=== PATIENT | female | born 1975 | race Caucasian/White ===

== ENCOUNTER → 2018-06-10 | Outpatient (CLI) | payer BC ==
--- NOTE | 2018-06-11 13:44 | CT ---
EXAMINATION TYPE: CT abdomen pelvis w con DATE OF EXAM: 06/10/2018 COMPARISON: Prior CT 04/20/2016 HISTORY: LLQ pain with history of mass removal CT DLP: 2665.4 mGycm Automated exposure control for dose reduction was used. TECHNIQUE: Helical acquisition of images from the lung bases through the pelvis have been completed. CONTRAST: Performed with Oral Contrast and with IV Contrast, patient injected with 100 mL of Isovue 300. FINDINGS: Patient is post lap band. Thickening of the distal esophagus could be due to small hiatal h ernia or esophagitis, postop change, port is present in the subcutaneous fat overlying the left rectu s muscle. Small umbilical hernia contains fat. LUNG BASES: No significant abnormality is appreciated. AORTA: No significant abnormality is appreciated. LIVER/GB: No significant abnormality is appreciated. PANCREAS: No significant abnormality is seen. SPLEEN: No significant abnormality is seen. ADRENALS: No significant abnormality is seen. KIDNEYS: No significant abnormality is seen. REPRODUCTIVE ORGANS: Uterus and adnexal structures are not seen. BOWEL: No significant abnormality is seen. The appendix is normal. FREE AIR: No Free Air visible. ASCITES: None visible. PELVIC ADENOPATHY: None visualized. RETROPERITONEAL ADENOPATHY: No Retroperitoneal Adenopathy visible. URINARY BLADDER: No significant abnormality is seen. OSSEOUS STRUCTURES: No significant abnormality is seen. IMPRESSION: POSTOP CHANGES.
== END | disposition home or self-care (01) ==
LOC: RADCTMAIN 15:51
PROVIDERS: ATTEND Internal Medicine
DX: R10.9 Unspecified abdominal pain (principal); Z85.44 Personal history of malignant neoplasm of other female genital organs; Z88.2 Allergy status to sulfonamides; Z98.890 Other specified postprocedural states
CPT/HCPCS: 74177; Q9967

== ENCOUNTER → 2020-01-04 | Outpatient (CLI) | payer BC ==
--- NOTE | 2020-01-09 10:56 | MM ---
Reason for exam: clinical finding. Baseline mammogram. History: Patient is postmenopausal and has history of other cancer at age 40. Indicated problem(s): lump or thickening in the right breast. Physical Findings: Nurse did not find any significant physical abnormalities on exam. MG 3D Diag Mammo W/Cad MEENU Bilateral CC and MLO view(s) were taken. There are scattered fibroglandular densities. There is a 5mm left mass of the lower inner quadrant 5cm from nipple and a right 5mm mass of the upper inner quadrant 5cm from nipple. These results were verbally communicated with the patient and result sheet given to the patient on 01/04/20. ASSESSMENT: Incomplete: need additional imaging evaluation, BI-RAD 0 RECOMMENDATION: Ultrasound of both breasts. (upper inner quadrant's)
--- NOTE | 2020-01-09 11:00 | USB ---
Reason for exam: additional evaluation requested from abnormal screening. History: Patient is postmenopausal and has history of other cancer at age 40. US Breast Limited BILAT Technologist: Linda Deleon Right limited breast ultrasound including focal area of concern, retroareolar and axilla demonstrates no cystic or solid lesion seen. Scanned right palpable upper inner quadrant at the nipple, no discrete lesion seen. Left limited breast ultrasound including focal area of concern, retroareolar and axilla demonstrates a 0.4 x 0.7 x 0.2cm cystic cluster at 6 o'clock. Scanned left medial half, particular attention to lower inner quadrant. a 7 x 4 x 2mm hypoechoic area, probable complicated cyst at 6 o'clock. These results were verbally communicated with the patient and result sheet given to the patient on 01/04/20. ASSESSMENT: Probably benign, BI-RAD 3 RECOMMENDATION: Follow-up diagnostic mammogram of both breasts in 6 months. Manage on a clinical basis with regard to any suspicious palpable abnormality.
== END | disposition home or self-care (01) ==
LOC: RADMAMWWP 14:54
PROVIDERS: ATTEND Internal Medicine
DX: N64.4 Mastodynia (principal)
CPT/HCPCS: 77062; 77066

== ENCOUNTER → 2020-07-23 | Outpatient (CLI) | payer BC ==
--- NOTE | 2020-07-23 10:51 | MM ---
Reason for exam: follow-up at short interval from prior study. Last mammogram was performed 7 months ago. History: Patient is postmenopausal and has history of other cancer at age 40. Physical Findings: Nurse did not find any significant physical abnormalities on exam. MG 3D Diag Mammo W/Cad MEENU Bilateral CC, MLO, and XCCL view(s) were taken. Prior study comparison: January 04, 2020, bilateral MG 3d diag mammo w/cad MEENU. There are scattered fibroglandular densities. There is chronic nodularity bilaterally. No significant new findings when compared with previous films. These results were verbally communicated with the patient and result sheet given to the patient on 07/23/20. ASSESSMENT: Benign, BI-RAD 2 RECOMMENDATION: Follow-up diagnostic mammogram of both breasts in 6 months. Back on schedule for December 2020.
== END | disposition home or self-care (01) ==
LOC: RADMAMWWP 08:09
PROVIDERS: ATTEND Internal Medicine
DX: R92.8 Other abnormal and inconclusive findings on diagnostic imaging of breast (principal)
CPT/HCPCS: 77062; 77066

== ENCOUNTER 2021-11-07 12:16 | Emergency (ER) | payer BC ==
[2021-11-07 12:25] LABS: Glucose,Whole Blood 87 mg/dL (75-99)
[2021-11-07] MEDS ORDERED: SODIUM CHLORIDE 0.9% 1,000 ML IV STA (15:01)
[2021-11-07] MEDS ORDERED: MORPHINE SULFATE 4 MG/ML SYRINGE IVP STA (15:02)
[2021-11-07] MEDS ORDERED: METOCLOPRAMIDE 5 MG/ML 2 ML VIAL IVP STA (15:04)
[2021-11-07] MEDS ORDERED: diphenhydrAMINE 50 MG/ML 1 ML VIAL IVP STA (15:04)
--- NOTE | 2021-11-07 15:11 | ED ---
General Adult HPI - General Chief complaint: Neuro Symptoms/Deficit Stated complaint: Left side pain/numbness/headache Time Seen by Provider: 11/07/21 14:53 Source: patient, family, RN notes reviewed, old records reviewed Mode of arrival: ambulatory Limitations: no limitations - History of Present Illness Initial comments: 45-year-old female presenting with headache. Patient does have history of chronic headache although this is somewhat different from her usual headache. He began as right sided neck pain and has traveled to [facility] behind her eyes. She was at work when this occurred. 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 She did report some numbness to the tips of her fingers in her right hand. No focal weakness. No previous history of aneurysm. No fever. No cough. No vomiting. - Related Data Home Medications Medication Instructions Recorded Confirmed No Known Home Medications 11/07/21 11/07/21 Allergies Allergy/AdvReac Type Severity Reaction Status Date / Time Influenza Virus Vaccines Allergy Severe Vomiting Verified 11/07/21 15:49 Sulfa (Sulfonamide Allergy Rash/Hives Verified 11/07/21 15:49 Antibiotics) Review of Systems ROS Statement: Those systems with pertinent positive or pertinent negative responses have been documented in the HPI. ROS Other: All systems not noted in ROS Statement are negative. Past Medical History Past Medical History: Asthma Additional Past Medical History / Comment(s): Polycystic ovarian disease, hx migraines, hx endometriosis History of Any Multi-Drug Resistant Organisms: None Reported Past Surgical History: Bariatric Surgery, Uterine Ablation Additional Past Surgical History / Comment(s): lab band, D&C Past Anesthesia/Blood Transfusion Reactions: Postoperative Nausea & Vomiting (PONV) Additional Past Anesthesia/Blood Transfusion Reaction / Comment(s): PATIENT STATES SHE IS " A LIGHT WEIGHT". "knocks me out for a couple days" Past Psychological History: No Psychological Hx Reported Smoking Status: Never smoker Past Alcohol Use History: Rare Past Drug Use History: None Reported - Past Family History Sister(s) Family Medical History: Blood Disorder, Deep Vein Thrombosis (DVT) Additional Family Medical History / Comment(s): FACTOR II ( pt states she herself has tested neg.) General Exam Limitations: no limitations General appearance: alert, in no apparent distress Head exam: Present: atraumatic, normocephalic Eye exam: Present: normal appearance, PERRL ENT exam: Present: normal exam Neck exam: Present: normal inspection. Absent: tenderness, meningismus Respiratory exam: Present: normal lung sounds bilaterally. Absent: respiratory distress, wheezes Cardiovascular Exam: Present: regular rate, normal rhythm GI/Abdominal exam: Present: soft. Absent: distended, tenderness, guarding, rebound Extremities exam: Present: normal inspection, normal capillary refill. Absent: pedal edema, calf tenderness Neurological exam: Present: alert, oriented X3, CN II-XII intact. Absent: motor sensory deficit Psychiatric exam: Present: normal affect, normal mood Skin exam: Present: warm, dry, intact. Absent: cyanosis, diaphoretic Course Vital Signs 11/07/21 11/07/21 11/07/21 12:17 15:08 15:54 Temperature 99.0 F Pulse Rate 56 L 51 L 42 L Respiratory 18 16 14 Rate Blood Pressure 151/88 147/66 128/66 O2 Sat by Pulse 100 100 100 Oximetry 11/07/21 17:15 Temperature Pulse Rate 60 Respiratory 16 Rate Blood Pressure 116/92 O2 Sat by Pulse 97 Oximetry EKG Findings - EKG Comments: EKG Findings:: EKG: Sinus bradycardia rate of 54, OK interval 170, QRS duration [address] segment elevation. Medical Decision Making - Medical Decision Making 45-year-old female with headache. Headache began in the neck and traveled to behind the eyes. There was no associated chest pain. No history of aneurysm within the family. Patient mildly hypertensive upon arrival. She receives both CT and CT angiography which is negative for acute findings within the head or neck. She has on initial hemolyzed potassium of 5.7 which is repeated and is normal. She's given antiemetic medication and IV fluids. On reevaluation she is feeling much better. She is eager for discharge. She has normal vitals. She will follow-up with her primary care physician. She does have some br adycardia between 50 and 65. No blood pressure abnormalities. Patient will follow with her primary care physician regarding this. - Lab Data Result diagrams: 11/07/21 15:08 11/07/21 17:09 Lab Results 11/07/21 11/07/21 11/07/21 Range/Units 12:23 15:08 15:08 WBC 7.1 (3.8-10.6) k/uL RBC 4.76 (3.80-5.40) m/uL Hgb 14.4 (11.4-16.0) gm/dL Hct 43.4 (34.0-46.0) % MCV 91.1 (80.0-100.0) fL MCH 30.3 (25.0-35.0) pg MCHC 33.3 (31.0-37.0) g/dL RDW 14.2 (11.5-15.5) % Plt Count 314 (150-450) k/uL MPV 7.7 Neutrophils % 58 % Lymphocytes % 34 % Monocytes % 3 % Eosinophils % 3 % Basophils % 1 % Neutrophils # 4.1 (1.3-7.7) k/uL Lymphocytes # 2.4 (1.0-4.8) k/uL Monocytes # 0.2 (0-1.0) k/uL Eosinophils # 0.2 (0-0.7) k/uL Basophils # 0.1 (0-0.2) k/uL PT 10.6 (9.0-12.0) sec INR 1.0 (<1.2) APTT 23.1 (22.0-30.0) sec Sodium (137-145) mmol/L Potassium (3.5-5.1) mmol/L Chloride (98-107) mmol/L Carbon Dioxide (22-30) mmol/L Anion Gap mmol/L BUN (7-17) mg/dL Creatinine (0.52-1.04) mg/dL Est GFR (CKD-EPI)AfAm (>60 ml/min/1.73 sqM) Est GFR (CKD-EPI)NonAf (>60 ml/min/1.73 sqM) Glucose (74-99) mg/dL POC Glucose (mg/dL) 87 (75-99) mg/dL POC Glu [employer] Licensee ID Willing, Betty Calcium (8.4-10.2) mg/dL Total Bilirubin (0.2-1.3) mg/dL AST (14-36) U/L ALT (4-34) U/L Alkaline Phosphatase (38-126) U/L Troponin I (0.000-0.034) ng/mL Total Protein (6.3-8.2) g/dL Albumin (3.5-5.0) g/dL 0411/07/21 11/07/21 Range/Units 15:08 15:08 17:09 WBC (3.8-10.6) k/uL RBC (3.80-5.40) m/uL Hgb (11.4-16.0) gm/dL Hct (34.0-46.0) % MCV (80.0-100.0) fL MCH (25.0-35.0) pg MCHC (31.0-37.0) g/dL RDW (11.5-15.5) % Plt Count (150-450) k/uL MPV Neutrophils % % Lymphocytes % % Monocytes % % Eosinophils % % Basophils % % Neutrophils # (1.3-7.7) k/uL Lymphocytes # (1.0-4.8) k/uL Monocytes # (0-1.0) k/uL Eosinophils # (0-0.7) k/uL Basophils # (0-0.2) k/uL PT (9.0-12.0) sec INR (<1.2) APTT (22.0-30.0) sec Sodium 136 L 136 L (137-145) mmol/L Potassium 5.7 H 4.0 (3.5-5.1) mmol/L Chloride 104 106 (98-107) mmol/L Carbon Dioxide 26 27 (22-30) mmol/L Anion Gap 6 3 mmol/L BUN 15 14 (7-17) mg/dL Creatinine 0.70 0.71 (0.52-1.04) mg/dL Est GFR (CKD-EPI)AfAm >90 >90 (>60 ml/min/1.73 sqM) Est GFR (CKD-EPI)NonAf >90 >90 (>60 ml/min/1.73 sqM) Glucose 91 89 (74-99) mg/dL POC Glucose (mg/dL) (75-99) mg/dL POC Glu [employer] Licensee ID Calcium 9.0 8.6 (8.4-10.2) mg/dL Total Bilirubin 1.7 H (0.2-1.3) mg/dL AST 59 H (14-36) U/L ALT 24 (4-34) U/L Alkaline Phosphatase 68 (38-126) U/L Troponin I <0.012 (0.000-0.034) ng/mL Total Protein 8.5 H (6.3-8.2) g/dL Albumin 4.6 (3.5-5.0) g/dL 11/07/21 Range/Units 17:09 WBC (3.8-10.6) k/uL RBC (3.80-5.40) m/uL Hgb (11.4-16.0) gm/dL Hct (34.0-46.0) % MCV (80.0-100.0) fL MCH (25.0-35.0) pg MCHC (31.0-37.0) g/dL RDW (11.5-15.5) % Plt Count (150-450) k/uL MPV Neutrophils % % Lymphocytes % % Monocytes % % Eosinophils % % Basophils % % Neutrophils # (1.3-7.7) k/uL Lymphocytes # (1.0-4.8) k/uL Monocytes # (0-1.0) k/uL Eosinophils # (0-0.7) k/uL Basophils # (0-0.2) k/uL PT (9.0-12.0) sec INR (<1.2) APTT (22.0-30.0) sec Sodium (137-145) mmol/L Potassium (3.5-5.1) mmol/L Chloride (98-107) mmol/L Carbon Dioxide (22-30) mmol/L Anion Gap mmol/L BUN (7-17) mg/dL Creatinine (0.52-1.04) mg/dL Est GFR (CKD-EPI)AfAm (>60 ml/min/1.73 sqM) Est GFR (CKD-EPI)NonAf (>60 ml/min/1.73 sqM) Glucose (74-99) mg/dL POC Glucose (mg/dL) (75-99) mg/dL POC Glu [employer] Licensee ID Calcium (8.4-10.2) mg/dL Total Bilirubin (0.2-1.3) mg/dL AST (14-36) U/L ALT (4-34) U/L Alkaline Phosphatase (38-126) U/L Troponin I <0.012 (0.000-0.034) ng/mL Total Protein (6.3-8.2) g/dL Albumin (3.5-5.0) g/dL Disposition Clinical Impression: Headache Disposition: HOME SELF-CARE Condition: Good Instructions (If sedation given, give patient instructions): Acute Headache (ED) Is patient prescribed a controlled substance at d/c from ED?: No Referrals: Nghia Alvares MD [Primary Care Provider] - 1-2 days Time of Disposition: 19:02
[2021-11-07 15:20] LABS: Basophils # (A) 0.1 k/uL (0-0.2); Basophils % (A) 1 %; Eosinophils # (A) 0.2 k/uL (0-0.7); Eosinophils % (A) 3 %; HCT 43.4 % (34.0-46.0); HGB 14.4 gm/dL (11.4-16.0); Lymphocytes # (A) 2.4 k/uL (1.0-4.8); Lymphocytes % (A) 34 %; MCH 30.3 pg (25.0-35.0); MCHC 33.3 g/dL (31.0-37.0); MCV 91.1 fL (80.0-100.0); Mean Platelet Volume 7.7; Monocytes # (A) 0.2 k/uL (0-1.0); Monocytes % (A) 3 %; Neutrophils # (A) 4.1 k/uL (1.3-7.7); Neutrophils % (A) 58 %; Platelet Count 314 k/uL (150-450); RBC 4.76 m/uL (3.80-5.40); RDW 14.2 % (11.5-15.5); WBC 7.1 k/uL (3.8-10.6)
[2021-11-07 15:29] LABS: Partial Thromboplastin Time 23.1 sec (22.0-30.0); Prothrombin Time 10.6 sec (9.0-12.0)
[2021-11-07 15:31] LABS: ALT 24 U/L (4-34); AST 59 U/L (14-36); African American GFR (CKD) >90 (>60 ml/min/1.73 sqM); Albumin 4.6 g/dL (3.5-5.0); Alkaline Phosphatase 68 U/L (38-126); Anion Gap 6 mmol/L; Blood Urea Nitrogen 15 mg/dL (7-17); Carbon Dioxide 26 mmol/L (22-30); Chloride 104 mmol/L (98-107); Glucose 91 mg/dL (74-99); Non-African American GFR(CKD) >90 (>60 ml/min/1.73 sqM); Sodium 136 mmol/L (137-145); Total Bilirubin 1.7 mg/dL (0.2-1.3); Total Protein 8.5 g/dL (6.3-8.2)
[2021-11-07 15:41] LABS: Potassium 5.7 mmol/L (3.5-5.1)
--- NOTE | 2021-11-07 15:41 | XR ---
EXAMINATION TYPE: XR chest 2V DATE OF EXAM: 11/07/2021 COMPARISON: Chest x-ray 04/17/2016 HISTORY: Altered mental status, left-sided numbness and dizziness TECHNIQUE: Frontal and lateral views of the chest are obtained. FINDINGS: There is no focal air space opacity, pleural effusion, or pneumothorax seen. The cardiac silhouette size is within normal limits. Lap band is present. It shows a somewhat transverse orienta tion. Findings similar to prior exam. The osseous structures are intact. IMPRESSION: No acute cardiopulmonary process. Additional findings above.
--- NOTE | 2021-11-07 15:47 | CT ---
EXAMINATION TYPE: CT brain wo con DATE OF EXAM: 11/07/2021 COMPARISON: MRI brain 06/12/2013 the HISTORY: Headache and sharp neck pain. CT DLP: 1077.8 mGycm. Automated Exposure Control for Dose Reduction was Utilized. TECHNIQUE: CT scan of the head is performed without contrast. FINDINGS: There is no acute intracranial hemorrhage, mass effect, or midline shift identified. The ventricles and sulci are within normal limits in size. The globes are intact and the visualized sin uses are clear. IMPRESSION: No acute intracranial hemorrhage, mass effect, or midline shift is seen.
--- NOTE | 2021-11-07 16:12 | CT ---
EXAMINATION TYPE: CT angio head neck DATE OF EXAM: 11/07/2021 HISTORY: Neuro deficit, stroke suspected COMPARISON: Nonenhanced CT brain performed earlier same day CT DLP: 843.3 mGycm. Automated Exposure Control for Dose Reduction was Utilized. TECHNIQUE: CTA scan of the head and neck is performed with IV Contrast, patient injected with 65 mL of Isovue 370, axial images are obtained, coronal and sagittal reformatted images are reviewed. 3D re constructed images are created on an independent workstation and reviewed. FINDINGS: Carotid/Vascular Structures: Normal caliber and enhancement of the neck arteries and intracranial art eries without significant stenosis, occlusion, dissection, aneurysm or AV malformation. Patent major intracranial venous sinuses. Other: No intracranial abnormal enhancement. Enlarged heterogeneous thyroid gland, please correlate w ith thyroid function tests/thyroid ultrasound results. Degenerative changes at C5-6 and C6-7 levels. IMPRESSION: Unremarkable CTA of the neck and intracranial arteries. Incidental findings as described above.
[2021-11-07 17:18] VITALS: RESP 16
[2021-11-07 17:32] LABS: African American GFR (CKD) >90 (>60 ml/min/1.73 sqM); Anion Gap 3 mmol/L; Blood Urea Nitrogen 14 mg/dL (7-17); Calcium 8.6 mg/dL (8.4-10.2); Carbon Dioxide 27 mmol/L (22-30); Chloride 106 mmol/L (98-107); Glucose 89 mg/dL (74-99); Non-African American GFR(CKD) >90 (>60 ml/min/1.73 sqM); Sodium 136 mmol/L (137-145)
[2021-11-07 19:03] VITALS: TEMP 97.7
[2021-11-07 19:45] VITALS: BP 121/81; PULSE 52
== END 2021-11-07 19:43 | disposition home or self-care (01) ==
LOC: EC 12:16
DX: R51.9 Headache, unspecified (principal); J45.909 Unspecified asthma, uncomplicated; Z88.7 Allergy status to serum and vaccine; Z88.2 Allergy status to sulfonamides
CPT/HCPCS: 36415; 93005; 80053; 80048; 84484; 85025; 85610; 85730; 71046; 70496; 70450; 70498; 99284; 96374; 96375; 96361; J1200; J2765; Q9967

== ENCOUNTER → 2021-12-13 | Outpatient (CLI) | payer BC ==
[2021-12-13 11:47] LABS: ALT 20 U/L (8-44); AST 21 U/L (13-35); Albumin/Globulin Ratio 1.56 (1.60-3.17); Alkaline Phosphatase 75 U/L (41-126); Bilirubin, Conjugated <0.20 mg/dL (0.20-0.40); Chol/HDL Ratio 3.66 Ratio; Globulin 2.6 g/dL (1.6-3.3); LDL Cholesterol,Calculated 113.7 mg/dL (0.0-131.0); Total Protein 6.6 g/dL (6.2-8.2); VLDL Calculation 14.92 mg/dL (5.00-40.00)
== END | disposition home or self-care (01) ==
LOC: LABWHC1 08:23
PROVIDERS: ATTEND Internal Medicine Cardiovascular Disease
DX: G45.8 Other transient cerebral ischemic attacks and related syndromes (principal); E78.2 Mixed hyperlipidemia; R07.9 Chest pain, unspecified; R55 Syncope and collapse; R06.2 Wheezing; R53.83 Other fatigue
CPT/HCPCS: 36415; 80061; 80076; 83695; 84439; 84443; 84481; 86141

== ENCOUNTER → 2022-07-10 | Outpatient (CLI) | payer BC ==
--- NOTE | 2022-07-10 15:45 | XR ---
EXAMINATION TYPE: XR chest 2V DATE OF EXAM: 07/10/2022 COMPARISON: 11/07/2021 HISTORY: Cough for 2 months TECHNIQUE: Frontal and lateral views of the chest are obtained. FINDINGS: There is no focal air space opacity, pleural effusion, or pneumothorax seen. The cardiac silhouette size is within normal limits. The osseous structures are intact. IMPRESSION: No acute cardiopulmonary process.
== END | disposition home or self-care (01) ==
LOC: RADXRMAIN 14:35
PROVIDERS: ATTEND Internal Medicine
DX: R06.02 Shortness of breath (principal); R05.9 Cough, unspecified
CPT/HCPCS: 71046